=== PATIENT | female | born 1980 | race Caucasian/White ===

== ENCOUNTER 2017-02-01 12:18 | Emergency (ER) | payer SELFPAY ==
[~2017-02-01 12:18] MED LIST: COMPAZINE10 M PO; EFFEXOR XR75 M1 PO; MOTRIN200 MG/TA1 PO; PERCOCET 10 MG/1 TAB PO; PERCOCET 5/3251 TAB PO; ULTRAM50 MG PO; ZOFRAN ODT4 MG/UDTAB PO
[2017-02-01] MEDS ORDERED: TRAZODONE HCL50 M1 PO (14:11)
[2017-02-01] MEDS ORDERED: CATAPRES0.1 M1 PO (14:11)
[2017-02-01] MEDS ORDERED: IBUPROFEN800 M1 PO (14:11)
[2017-02-01] MEDS ORDERED: TOPAMAX50 M3 PO (14:15)
[2017-02-01 15:48] LABS: URINE BILIRUBIN NEGATIVE (NEG); URINE BLOOD NEGATIVE (NEG); URINE GLUCOSE (UA) NEGATIVE (NEG); URINE KETONE MODERATE (NEG); URINE LEUKOCYTE ESTERASE NEGATIVE (NEG); URINE NITRITE NEGATIVE (NEG); URINE PROTEIN NEGATIVE (NEG)
[2017-02-01 15:49] LABS: URINE APPEARANCE CLEAR; URINE COLOR YELLOW
[2017-02-01 15:58] LABS: BASO % 0.4 % (0-2); EOS % 1.6 % (0-7); EOSINOPHIL ABSOLUTE COUNT 0.1 tho/cmm (0.0-0.7); HCT-HEMATOCRIT 39.5 % (34.0-49.0); HGB-HEMOGLOBIN 13.7 gm/dl (12.0-15.5); IMMATURE GRANULOCYTES ABSOLUTE 0.01 tho/cmm (0-0.03); IMMATURE GRANULOCYTES PERCENT 0.1 % (0-0.3); LYMPH % 33.8 % (20-45); LYMPH ABSOLUTE COUNT 2.3 tho/cmm (0.8-4.5); MCH (MEAN CORPUSCULAR HGB) 31.1 pg (28.0-32.0); MCHC MEAN CORPUSCULAR HGB CONC 34.7 % (32.0-36.0); MCV (MEAN CELL VOLUME) 89.8 fl (82.0-96.0); MEAN PLATELET VOLUME 9.4 cmc (9.4-12.4); MONO % 5.4 % (0-12); MONOCYTE ABSOLUTE COUNT 0.4 tho/cmm (0.0-1.2); NEUTROPHILS % 58.7 % (40-80); PLATELET COUNT 285 tho/cmm (150-450); RED CELL DISTRIBUTION WIDTH 14.4 % (12.4-16.4); WHITE BLOOD COUNT 6.8 tho/cmm (4.0-10.0)
[2017-02-01] MEDS ORDERED: ULTRAM50 M1 PO (16:45)
== END 2017-02-01 17:21 ==
LOC: EDMED 12:18
PROVIDERS: Emergency Medicine
DX: N83.202 Unspecified ovarian cyst, left side (principal); N84.0 Polyp of corpus uteri; I10 Essential (primary) hypertension; Z90.89 Acquired absence of other organs; Z79.899 Other long term (current) drug therapy
CPT/HCPCS: J1885